=== PATIENT | female | born 1990 | race Caucasian/White ===

== ENCOUNTER 2016-12-31 12:11 | Emergency (ER) | payer BC, OTHER ==
[2016-12-31 13:45] VITALS: BP 127/69
--- NOTE | 2016-12-31 14:08 | UC ---
Abdominal Pain Female HPI - HPI Summary HPI Summary: Pt with h/o BV. Here with 10 days itching, odor discharge - states feels the same. Pt is in monogamous relationship. no OTC treatments. Last BV 6 months ago. No vaginal bleeding. No dysuria LMP 5 weeks. Pt's medications reviewed this visit - History of Current Complaint Chief Complaint: UCGU Stated Complaint: PERSONAL Time Seen by Provider: 12/31/16 13:44 Hx Obtained From: Patient Hx Last Menstrual Period: 12/09/16 Onset/Duration: Gradual Onset Timing: Constant Severity Initially: Mild Severity Currently: Mild Radiates: No Allergies/Adverse Reactions: Allergies Allergy/AdvReac Type Severity Reaction Status Date / Time No Known Allergies Allergy Verified 12/31/16 13:41 PMH/Surg Hx/FS Hx/Imm Hx Previously Healthy: Yes - Surgical History Surgical History: None - Family History Known Family History: Positive: Diabetes - Social History Occupation: Employed Full-time Lives: With Family Alcohol Use: Occasionally Substance Use Type: None Smoking Status (MU): Heavy Every Day Tobacco Smoker Type: Cigarettes Amount Used/How Often: 1/2 pack daily Review of Systems Constitutional: Negative Gastrointestinal: Negative Genitourinary: Vaginal/Penile Burning, Vaginal/Penile Discharge All Other Systems Reviewed And Are Negative: Yes Physical Exam Triage Information Reviewed: Yes Appearance: Well-Appearing, No Pain Distress, Well-Nourished Vital Signs: Initial Vital Signs Temp 99.2 F 12/31/16 13:42 Pulse 85 12/31/16 13:42 Resp 18 12/31/16 13:42 BP 127/69 12/31/16 13:42 Vital Signs Reviewed: Yes Eye Exam: Normal Eyes: Negative: Discharge ENT: Positive: Hearing grossly normal Dental Exam: Normal Neck exam: Normal Neck: Positive: Supple Respiratory: Positive: No respiratory distress, No accessory muscle use Cardiovascular Exam: Normal Cardiovascular: Positive: RRR, No Murmur Abdominal Exam: Normal Abdomen Description: Positive: Nontender, No Organomegaly, Soft, Other: - Vaginal: no lesion Pt with thin, white discharge in vault no odor no bleeding No CMT Musculoskeletal Exam: Normal Neurological Exam: Normal Psychological Exam: Normal Skin Exam: Normal Abd Pain Female Course/Dx - Course Course Of Treatment: Pt with vaginal discharge x 10 days -thin, white d/c. affirm taken. gc/chlamydia. will start flagyl - d/w pt ETOH precuations. cultures pending. preg neg. Pt comfortable with plan - Differential Dx/Diagnosis Provider Diagnoses: vaginal d/c Discharge - Discharge Plan Condition: Stable Disposition: HOME Prescriptions: Metronidazole [Flagyl 500 MG TAB] 500 mg PO BID #14 tab Patient Education Materials: Bacterial Vaginosis (ED) Referrals: Julieta Camacho MD [Medical Doctor] - Additional Instructions: - Stay well hydrated. Drink plenty of non-alcoholic, non-caffianted beverages - eat and drink regular, healthy meals - Take Flagyl as prescribe until gone. Do NOT drink alcohol 48 hours before and 48 hours after taking this medication - your sample has been sent for additional testing - if you need a different treatment other than what was provided today you will receive a call from a care steamer tender - contact your doctor, last greaser or return with questions or concerns
[2016-12-31 19:21] LABS: Trichomonas Source Endocervical (Negative)
== END 2016-12-31 14:25 | disposition home or self-care (01) ==
LOC: UCCORT 12:11
DX: N89.8 Other specified noninflammatory disorders of vagina (principal); F17.210 Nicotine dependence, cigarettes, uncomplicated
CPT/HCPCS: 84702; 87480; 87491; 87510; 87591; 87660; 87661; 99212; G0463